=== PATIENT | female | born 2000 | race Caucasian/White ===

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

== ENCOUNTER 2022-09-27 15:18 | Outpatient (CLI) | payer BC ==
[~2022-09-27 15:18] MED LIST: Iopamidol 370 76% 100 ML VIAL ONE
[2022-09-27] MEDS ORDERED: PROPOFOL 20 ML ONE (21:38)
[2022-09-27] MEDS ORDERED: Fentanyl 100 MCG/2 ML VIAL ONE (21:38)
[2022-09-27] MEDS ORDERED: Lidocaine 2% PF 5 ML VIAL ONE (21:38)
[2022-09-27] MEDS ORDERED: Rocuronium Bromide 10 MG/ML (10ML VIAL) ONE (21:41)
[2022-09-27] MEDS ORDERED: Ketorolac Tromethamine 30 MG/ML VIAL ONE (21:58)
[2022-09-27] MEDS ORDERED: Ondansetron PF 4 MG/2 ML Vial ONE (21:58)
[2022-09-27] MEDS ORDERED: Dexamethasone 4 mg/ml Vial ONE (21:58)
[2022-09-27] MEDS ORDERED: Glycopyrrolate 0.2 MG/ML 5 ML SYRINGE ONE (22:03)
== END 2022-09-27 15:19 | disposition home or self-care (01) ==
LOC: CSHCT 15:18
PROVIDERS: ATTEND Nurse Practitioner Family
DX: R10.31 Right lower quadrant pain (principal); R93.5 Abnormal findings on diagnostic imaging of other abdominal regions, including retroperitoneum
CPT/HCPCS: 74177; J1100; J1885; J2001; J2405; J2704; J3010

== ENCOUNTER 2022-09-27 16:50 | Emergency (ER) | payer BC ==
[2022-09-27 17:37] LABS: #Monocytes 0.3 10x3/uL (0.0-1.1); #Neutrophils 3.2 10x3/uL (1.5-8.4); %Basophils 0.8 % (0.0-2.0); %Eosinophils 0.8 % (0.0-6.0); %Lymphocytes 27.9 % (18.0-47.0); %Monocytes 6.5 % (0.0-10.0); %Neutrophils 63.8 % (40.0-75.0); Hemoglobin 12.6 g/dL (12.0-15.5); Mean Corpuscular HGB CONC 34.1 g/dL (32.0-36.0); Mean Corpuscular Hemoglobin 32.1 pg (27.0-33.0); Mean Corpuscular Volume 94.1 fl (81.6-98.3); Mean Platelet Volume 9.9 fl (7.4-10.4); Platelet Count 225 10x3/uL (150-450); RBC Distribution Width 11.9 % (11.5-14.5); Red Blood Cell (RBC) Count 3.93 10x6/uL (3.90-5.03); White Blood Cell (WBC) Count 4.9 10x3/uL (3.5-10.5)
[2022-09-27 17:40] LABS: BHCG - Serum Negative (NEGATIVE); Pregs Control Background? CLEAR/WHITE (CLR/WHITE); Pregs Control Bar Appear? YES (CONTROL BAR)
[2022-09-27 17:53] LABS: ALT (SGPT) 16 U/L (8-55); AST (SGOT) 20 U/L (5-34); Albumin 4.5 g/dL (3.5-5.0); Alkaline Phosphatase 60 U/L (40-100); Anion Gap 14 mmol/L (10-20); BUN (Urea Nitrogen) 12 mg/dL (7.0-18.7); Bilirubin, Total 0.6 mg/dL (0.2-1.2); Calc. Creatinine Clearance 0 mL/min (70-130); Calcium 9.8 mg/dL (7.8-10.44); Carbon Dioxide 24 mmol/L (22-29); Chloride 103 mmol/L (98-107); Estimated GFR 108; Globulin 2.8 g/dL (2.4-3.5); Glucose 136 mg/dL (70-105); Potassium 3.9 mmol/L (3.5-5.1); Protein, Total 7.3 g/dL (6.0-8.3); Sodium 137 mmol/L (136-145)
[2022-09-27] MEDS ORDERED: Ondansetron PF 4 MG/2 ML Vial ONE (18:58)
[2022-09-27] MEDS ORDERED: Piperacillin/Tazobactam 3.375 GM VIAL ONE (18:59)
[2022-09-27] MEDS ORDERED: Bupivacaine PF 0.5% 30 ML VIAL ONE (20:47)
[2022-09-27] MEDS ORDERED: EPINEPHrine 1 MG/ML AMP ONE (20:47)
[2022-09-27] MEDS ORDERED: SUGAMMADEX SODIUM 200 MG/2 ML VIAL ONE (22:17)
[2022-09-27] MEDS ORDERED: Fentanyl 100 MCG/2 ML VIAL ONE (22:17)
[2022-09-27] MEDS ORDERED: HYDROcodone/Acetaminophen 5/325 mg Tablet PO PRN (22:26)
[2022-09-27] MEDS ORDERED: Acetaminophen 325 MG TAB PO PRN (22:26)
== END 2022-09-27 19:32 | disposition admitted as inpatient to this hospital (09) ==
LOC: CSHERS 16:50
DX: K35.80 Unspecified acute appendicitis (principal)
CPT/HCPCS: 74177; 83605; 84703; 88304; 96374; 96375; A4649; C1776; J0171; J1100; J1885; J2001; J2405; J2543; J2704; J3010; Q9967; S0020